=== PATIENT | female | born 1970 | race Caucasian/White ===

== ENCOUNTER 2017-04-07 05:43 | Inpatient (IN) | payer OTHER ==
[~2017-04-07] VITALS: Ht 157.5 cm; Wt 63.9 kg
[2017-04-07] VITALS (14 sets, daily range): BP systolic 93–117; BP diastolic 53–72; PULSE 62–75; RESP 16–21; Ht 157.5 cm; Wt 63.9 kg
[2017-04-07] MEDS ORDERED: EPHEDrine SULFATE 50 MG/5 ML SYG ONE (07:00)
--- NOTE | 2017-04-07 07:15 | HPN ---
Date/Time of Note Date/Time of Note DATE: 04/07/17 TIME: 07:15 Interval H&P Admission Note Pt. seen H&P reviewed: No system changes JESUS WHITTAKER MD Apr 07, 2017 07:15
[2017-04-07] MEDS ORDERED: ROCURONIUM 50 MG INJ ONE (07:33)
[2017-04-07] MEDS ORDERED: PROPOFOL 20 ML ONE (07:33)
[2017-04-07] MEDS ORDERED: CEFAZOLIN 1 GM INJ ONE (07:33)
[2017-04-07] MEDS ORDERED: NEOSTIGMINE 3 MG/3 ML SYRINGE ONE (07:33)
[2017-04-07] MEDS ORDERED: GLYCOPYRROLATE 0.4 MG INJ ONE (07:33)
[2017-04-07] MEDS ORDERED: ONDANSETRON 4 MG INJ ONE (07:34)
[2017-04-07] MEDS ORDERED: DEXAMETHASONE 4 MG/ML 1 ML INJ ONE (07:34)
[2017-04-07] MEDS ORDERED: MIDAZOLAM 1 MG/ML 2 ML INJ ONE (07:34)
[2017-04-07] MEDS ORDERED: FENTAnyl 50 MCG/ML VIAL ONE (07:34)
--- NOTE | 2017-04-07 07:34 | HP ---
Date/Time of Note Date/Time of Note DATE: 04/07/17 TIME: 07:15 Assessment/Plan VTE Prophylaxis VTE Prophylaxis Intervention: ambulation, anti-embolic stocking Lines/Catheters IV Catheter [facility] (from [facility]): Saline Lock Assessment/Plan Assessment/Plan uterine fibroids rapidly growing dyspareunia plan total abdominal hysterectomy and possible bilateral salphingophorectomy HPI/ROS Admit Date/Time Admit Date/Time Apr 07, 2017 at 05:43 Hx of Present Illness 47 y.o A2 was admitted for total abdominal hysterectomy and possible bilateral salphingoophorectomy. she was seen in may last year for annual exam when uterine fibroid discovered for the first time with no significant symptoms except painful intercourse occassionally. her period were regular monthly , last 4days in normal amount. repeated u/s in 5months revealed rapidly growing in size.. chest X-ray neg patient was informed regarding complications from minor to serious from surgical procedure and anesthesia, agree to receive surgical intervention also informed the patient if ovaries grossly normal appearing ,will be saved. ROS occ mild dyspareunia Constitutional: improved, no complaints Eyes: no complaints ENT: no complaints Respiratory: no complaints Cardiovascular: no complaints Gastrointestinal: no complaints Genitourinary: no complaints Musculoskeletal: no complaints Skin: no complaints Neurologic: no complaints Endocrine: no complaints Lymphatic: no complaints Psychological: nl mood/affect, no complaints Immunologic: no complaints PMH/Family/Social Past Medical History Medical History: no pertinent history Past Surgical History Past Surgical Hx: no surgical history, other (father had heaart attack at 49 y.o paternal GF had heart attack at 32y.o, paternal uncle had heaart attack at 68y.o) Family History Significant Family History: heart disease Social History Alcohol Use: none Smoking Status: Current every day smoker Drug Use: none Exam/Review of Systems Vital Signs Vitals Vital Signs Date Time Temp Pulse Resp B/P Pulse Ox O2 Delivery O2 Flow Rate FiO2 04/07/17 06:58 98.1 75 18 110/72 97 Room Air Exam Constitutional: alert, oriented, well developed Psych: nl mood/affect, no complaints Head: atraumatic, normocephalic Eyes: EOMI, PERRL, nl conjunctiva, nl lids, nl sclera ENMT: nl external ears & nose, nl lips & teeth, nl nasal mucosa & septum Neck: non-tender, supple Respiratory: clear to auscultation, normal air movement Cardiovascular: nl pulses, regular rate and rhythm Gastrointestinal: nl liver, spleen, non-tender, soft Genitourinary - Female: CMT, CVA tenderness, nl adnexae, nl external genitalia , other, uterus (enlarged with multiple fibroids approximately 16weeks size) Musculoskeletal: nl extremities to inspection Extremities: normal pulses Neurological: SUPERVISOR GENERAL II-XII intact, nl mental status, nl speech, nl strength Skin: nl turgor, No rash or lesions Lymph: nl lymph nodes JESUS WHITTAKER MD Apr 07, 2017 07:27
[2017-04-07] MEDS ORDERED: morphine SULFATE/PF (10 MG/10 ML) INJ ONE (07:37)
[2017-04-07] MEDS ORDERED: CEFAZOLIN 2 GM/50 ML (PMX) 50 ML IVPB SCH (08:30)
[2017-04-07] MEDS ORDERED: KETOROLAC 30 MG INJ IV PRN (09:00)
[2017-04-07] MEDS ORDERED: IPRATROPIUM (NEB) 0.5 MG/2.5 ML AMP HHN PRN (09:00)
[2017-04-07] MEDS ORDERED: OXYCODONE/ACETAMINOPHEN (5/325) TAB PO PRN ×2 (09:00)
[2017-04-07] MEDS ORDERED: MIDAZOLAM 1 MG/ML 2 ML INJ IV PRN (09:00)
[2017-04-07] MEDS ORDERED: morphine 4 MG/ML VIAL IV PRN (09:00)
[2017-04-07] MEDS ORDERED: DIPHENHYDRAMINE 50 MG INJ IV PRN ×2 (09:00)
[2017-04-07] MEDS ORDERED: ONDANSETRON 4 MG INJ IV PRN (09:00)
[2017-04-07] MEDS ORDERED: hydrALAzine 20 MG INJ IV PRN (09:00)
[2017-04-07] MEDS ORDERED: LABETALOL HCL 20MG INJ IV PRN (09:00)
[2017-04-07] MEDS ORDERED: MEPERIDINE 25 MG INJ IV PRN (09:00)
[2017-04-07] MEDS ORDERED: HYDROmorphONE (0.2 MG/ML) 10ML SYG IV PRN ×3 (09:00)
[2017-04-07] MEDS ORDERED: FENTAnyl 50 MCG/ML VIAL IV PRN ×3 (09:00)
[2017-04-07] MEDS ORDERED: NALBUPHINE HCL (10 MG/1 ML) INJ IV PRN (09:00)
[2017-04-07] MEDS ORDERED: NALOXONE (0.4 MG/ML) INJ IV PRN (09:00)
[2017-04-07] MEDS ORDERED: EPHEDrine SULFATE 50 MG/5 ML SYG IV PRN (09:00)
[2017-04-07] MEDS ORDERED: ZOLPIDEM 5 MG TAB PO PRN (09:00)
[2017-04-07] MEDS ORDERED: morphine 2 MG INJ IV PRN (09:00)
[2017-04-07] MEDS ORDERED: TRIMETHOBENZAMIDE 100 MG/ML VIAL IM PRN ×2 (09:00)
[2017-04-07] MEDS ORDERED: ALBUTEROL 0.083% (NEB) 2.5 MG/3 ML AMP HHN PRN (09:00)
[2017-04-07] MEDS ORDERED: METOCLOPRAMIDE 10 MG INJ ONE (09:54)
--- NOTE | 2017-04-07 09:58 | SIPON ---
Date/Time of Note Date/Time of Note DATE: 04/07/17 TIME: 09:53 Operative Report Preoperative Diagnosis uterine fibroids dyspareunia Postoperative Diagnosis same intraop pathology consult benign rt paratubal cyst Operation/Procedure Performed total abdominal hysterectomy bilateral salphingectomy Surgeon see signature line permit review assistant reiche Anesthesia: general, spinal Estimated blood loss: 100 - 150 ml's Specimen uterus and cervix both follopian tubes Grafts/Implants none Complications none JESUS WHITTAKER MD Apr 07, 2017 09:58
[2017-04-07 10:54] LABS: ADD UMIC NO; UR ASCORBIC ACID NEGATIVE (NEGATIVE); UR BILIRUBIN (Dip) NEGATIVE (NEGATIVE); UR BLOOD (Dip) NEGATIVE (NEGATIVE); UR CLARITY CLEAR (CLEAR); UR COLOR COLORLESS (YELLOW); UR GLUCOSE (Dip) NEGATIVE (NEGATIVE); UR KETONES (Dip) NEGATIVE (NEGATIVE); UR LEUKOCYTE ESTERASE (Dip) NEGATIVE Leu/ul (NEGATIVE); UR NITRITE (Dip) NEGATIVE (NEGATIVE); UR SPECIFIC GRAVITY (Dip) 1.011 (1.003-1.030); UR TOTAL PROTEIN (Dip) NEGATIVE (NEGATIVE); UR UROBILINOGEN (Dip) NEGATIVE (NEGATIVE)
[2017-04-07] MEDS: LACTATED RINGER'S 1,000 ML IV* ONE ×2 (11:31→11:47)
[2017-04-07] MEDS: ONDANSETRON 4 MG INJ IV PRN ×2 (15:00→21:18)
[2017-04-08 02:27] VITALS: BP 104/57; RESP 18
[2017-04-08 08:38] VITALS: BP 103/63; RESP 18
[2017-04-08] MEDS: OXYCODONE/ACETAMINOPHEN (5/325) TAB PO PRN ×2 (09:32→14:09)
--- NOTE | 2017-04-08 10:25 | OPR ---
DATE OF OPERATION: 04/07/2017 PREOPERATIVE DIAGNOSES: 1. Uterine leiomyomata, rapidly growing. 2. Dyspareunia. POSTOPERATIVE DIAGNOSES: 1. Uterine leiomyomata, rapidly growing. 2. Dyspareunia. 3. Intraoperative pathology consultation suggests benign. ANESTHESIA: Spinal and general. ANESTHESIOLOGIST: Dr. Kim SURGEON: Bob Arce MD LEAD OXIDE MILL TENDER: Dr. Storey ESTIMATED BLOOD LOSS: Approximately 150 mL. DESCRIPTION OF PROCEDURE: Under proper induction of spinal anesthesia for postop pain management, p atient was in the frog position. Juarez catheter was introduced into the bladder under sterile condi tion. Under general anesthesia, abdominal wall was prepped and draped in usual aseptic manner. A t ransverse incision was made in the suprapubic region approximately 2 fingers above the pubic rami. Incision was carried down through the subcutaneous tissue to the anterior recti fascia, which was in cised transversely in length of the incision. Fascial flap was created by blunt and sharp dissectio n of tendinous attachment upward and downward, 2 rectus muscles split in the midline, peritoneal cav ity was entered. Pelvic exploration was done, revealed the uterus felt to be approximately 16 weeks of gestational size, firm in consistency, markedly irregular, especially on the left side. Broad l igament, there is approximately 5 cm fibroid noted. Both ovaries felt to be normal, and tubes were normal. At this point, retractor was not going to be introduced because there was not enough space. Uterus was delivered out of the incision and without retractor, procedure proceeded. The Andrew cl amp was placed on the fundus and as I described on the left broad ligament, there was a 5 cm uterine fibroid noted, which interrupted the space, not able to clamp it down on the cornua of the uterus. So, incision was made over the uterine fibroid. The uterine fibroid on the left broad ligament was enucleated and the left uteroovarian ligament and fallopian tube, and the proximal portion of the r ound ligament was clamped, and the round ligament was clamped and cut, ligated with #1 chromic catgu t, which was left long for next procedure. Anterior leaf of the broad ligament was incised inferior medially and created a bladder flap on the left side. The broad ligament was windowed and the prox imal portion of uteroovarian ligament and fallopian tube was clamped and cut, doubly ligated with #1 chromic catgut. Uterine vessel was skeletonized and clamped and cut, transfixed with #1 chromic ca tgut on the left side. Right side, the round ligament was clamped and cut, ligated with a #1 chromi c catgut. Broad ligament was windowed and through this, proximal portion of uteroovarian ligament a nd fallopian tube was clamped and cut, doubly ligated with #1 chromic catgut. In the right side, bl adder flap was created and bladder was pushed down and the uterine vessel was skeletonized, and this was clamped and cut, transfixed with a #1 chromic catgut. Further dissection of bladder down and t he cardinal ligament on each side clamped and cut, ligated with #1 chromic catgut, and uterosacral l igament was clamped and cut, ligated with a #1 chromic, suture was left long for next procedure. Pr ior to the uterosacral ligament, after the uterine vessel was clamped and cut, the fundus was remove d from the operative field for proper visualization, and also conserved to pathology for the status of the fibroid. Pathologist came and gave the report, and benign. OC retractor was introduced and then proceeded to the cardinal ligament on each side, clamped and cut. Uterosacral ligament was cla mped and cut, ligated with #1 chromic catgut, which suture left long. Further dissection of bladder from the cervix and then anterior vagina were entered with a scalpel at the level of the cervicovag inal fold. Then, entire cervix was removed from the operative field as the vaginal vault was held w ith multiple Kochers. Hemostatic angle ligated using #1 chromic catgut on each side, including card inal and the uterosacral ligament. Suture was left long on each angle. The rest of vaginal vault w as closed with #1 chromic catgut in [id number] manner. Then, right fallopian tube was clamped with a Pean, this was doubly ligated with a #1 chromic catgut. The right side, there was a small pa ratubal cyst noted. Left fallopian tube was also clamped and cut and doubly ligated with a #1 chrom ic catgut. Bleeder controlled properly. Irrigation done with water and a piece of Surgicel was kylah shai under the bladder, and 2 pieces of Interceed covered both ovaries. All sponges were removed and OC retractor was removed. Prior to irrigation, the round ligament and the suture left on both corn ua with the uterosacral ligament was tied for the vaginal vault suspension bilaterally. Sponge coun t correct. Instrument count correct. Parietal peritoneum was closed with 0 chromic catgut in davis nuous manner, after all the instruments, sponge count correct. Muscle closed with 0 chromic catgut. Fascia closed with #1 Vicryl in continuous manner in 2 segments, and the subcutaneous tissue irrig ated with water. This layer was approximated with 2-0 plain in continuous manner. Skin closed with Insorb. Steri-Strips applied. The pressure dressing applied. Estimated blood loss approximately 150. The patient withstood procedure well, sent to recovery room in stable condition. Juarez has ab out 1000 mL of urine, clear. Dictated By: BOB HATFIELD/MAME Conf#: [id number] DID#: [id number]
[2017-04-08 10:45] LABS: ADD UMIC NO; UR ASCORBIC ACID NEGATIVE (NEGATIVE); UR BILIRUBIN (Dip) NEGATIVE (NEGATIVE); UR BLOOD (Dip) NEGATIVE (NEGATIVE); UR CLARITY CLEAR (CLEAR); UR COLOR YELLOW (YELLOW); UR GLUCOSE (Dip) NEGATIVE (NEGATIVE); UR KETONES (Dip) NEGATIVE (NEGATIVE); UR LEUKOCYTE ESTERASE (Dip) NEGATIVE Leu/ul (NEGATIVE); UR NITRITE (Dip) NEGATIVE (NEGATIVE); UR TOTAL PROTEIN (Dip) NEGATIVE (NEGATIVE); UR UROBILINOGEN (Dip) NEGATIVE (NEGATIVE)
[2017-04-08] MEDS: IBUPROFEN 600 MG TAB PO SCH ×3 (11:59→23:23)
[2017-04-08 15:20] VITALS: BP 122/63; RESP 18
[2017-04-08 20:00] VITALS: BP 127/74; RESP 19
[2017-04-09] MEDS: IBUPROFEN 600 MG TAB PO SCH ×4 (00:37→23:26)
[2017-04-09 02:15] VITALS: BP 107/59; RESP 19
[2017-04-09 07:00] VITALS: BP 119/79; RESP 18
[2017-04-09] MEDS: OXYCODONE/ACETAMINOPHEN (5/325) TAB PO PRN ×2 (08:11→15:43)
--- NOTE | 2017-04-09 13:08 | PN ---
Date/Time of Note Date/Time of Note DATE: 04/09/17 TIME: 13:04 Assessment/Plan Lines/Catheters IV Catheter Type (from Nrs): Saline Lock Juarez in Place (from Nrs): Yes Subjective 24 Hr Interval Summary S little flatus c/osurgicalpain but better than yesterday nausea but no vomiting O vss afebrile abdomen soft wound dry no vagial bleeding A stable s/p ABELARDO BS P as ordered Exam/Review of Systems Vital Signs Vitals Vital Signs Date Time Temp Pulse Resp B/P Pulse Ox O2 Delivery O2 Flow Rate FiO2 04/09/17 07:00 98.7 84 18 119/79 97 04/07/17 10:58 Room Air Intake and Output 04/08/17 04/08/17 04/09/17 15:00 23:00 07:00 Intake Total 400 ml 880 ml Output Total 1000 ml 920 ml Balance -600 ml -40 ml JESUS WHITTAKER MD Apr 09, 2017 13:08
[2017-04-09 14:00] VITALS: BP 122/76; RESP 18
[2017-04-09 14:04] LABS: BASOPHILS % 0.2 % (0.0-2.0); EOSINOPHILS % 0.1 % (0.0-7.0); HEMATOCRIT 34.1 % (37.0-47.0); HEMOGLOBIN 11.2 g/dl (12.0-16.0); LYMPHOCYTES # 1.3 10^3/ul (0.8-2.9); LYMPHOCYTES % 10.8 % (15.0-51.0); MEAN CORPUSCULAR HEMOGLOBIN 29.5 pg (29.0-33.0); MEAN CORPUSCULAR HGB CONC 32.8 g/dl (32.0-37.0); MEAN CORPUSCULAR VOLUME 89.7 fl (82.0-101.0); MEAN PLATELET VOLUME 10.1 fl (7.4-10.4); MONOCYTE # 0.7 10^3/ul (0.3-0.9); MONOCYTES % 5.3 % (0.0-11.0); NEUTROPHIL # 10.2 10^3/ul (1.6-7.5); NEUTROPHILS % 83.1 % (39.0-77.0); PLATELET COUNT 217 10^3/UL (140-415); RED CELL DISTRIBUTION WIDTH 14.1 % (11.5-14.5); WHITE BLOOD COUNT 12.3 10^3/ul (4.8-10.8)
[2017-04-09 20:00] VITALS: BP 112/75; RESP 18
[2017-04-09] MEDS: DOCUSATE SODIUM 100 MG CAP PO SCH (20:11)
[2017-04-10 02:00] VITALS: BP 112/74; RESP 18
[2017-04-10] MEDS: IBUPROFEN 600 MG TAB PO SCH ×2 (05:03→13:16)
[2017-04-10 08:00] VITALS: BP 111/77; RESP 18
[2017-04-10] MEDS: DOCUSATE SODIUM 100 MG CAP PO SCH (08:48)
[2017-04-10] MEDS: OXYCODONE/ACETAMINOPHEN (5/325) TAB PO PRN (08:52)
[2017-04-10 12:49] VITALS: BP 105/67; RESP 18
--- NOTE | 2017-04-10 17:56 | PD.PPDC ---
ENGLISH TUTOR Discharge Instruction Diagnosis Final Diagnosis: uterine fibroids Condition Patient Condition: Stable Diet Diet: Resume Regular Diet Activity/Restrictions Activity: May Shower Restrictions: No Exercising No Lifting No Driving Minimize Stair-climbing No Sexual Activity Nothing in the Vagina No [place] No Tampons, douche Wound/Drain Care Instructions Wound/Drain Care Instructions: Wash with soap and water Keep clean and dry Follow-up Follow-up with Physician: 2, Week/Weeks Return to clinic for THERAPEUTIC RECREATION LEADER Instructions: Fever greater than 101 Chills Worsening abdominal pain Excessive Vaginal Bleeding More than 2 pads per hour Unable to tolerate diet Surgical Instructions: Incisional Drainage Incisional Redness JESUS WHITTAKER MD Apr 10, 2017 17:56
--- NOTE | 2017-04-10 18:03 | DS ---
Date/Time of Note Date/Time of Note DATE: 04/10/17 TIME: 17:57 Discharge Summary Admission/Discharge Info Admit Date/Time Apr 07, 2017 at 05:43 Discharge Date/Time apr 10 2017/1800 Discharge Diagnosis uterine fibroids dyspareunia Rt paratubal serous cystadenoma Patient Condition: Stable Consults none Procedures total abdominal hysterectomy and bilaateral salphingectomy Hx of Present Illness 47 y.o A2 was admitted for total abdominal hysterectomy and possible bilateral salphingoophorectomy. she was seen in may last year for annual exam when uterine fibroid discovered for the first time with no significant symptoms except painful intercourse occassionally. her period were regular monthly , last 4days in normal amount. repeated u/s in 5months revealed rapidly growing in size.. chest X-ray neg patient was informed regarding complications from minor to serious from surgical procedure and anesthesia, agree to receive surgical intervention also informed the patient if ovaries grossly normal appearing ,will be saved. Hospital Course postop had unevenful course pathologic finding is benign Home Meds No Active Prescriptions or Reported Meds Follow-up Plan 2weeks Primary Care Provider Not On Staff Doctor Time spent on discharge: < 30 minutes JESUS WHITTAKER MD Apr 10, 2017 18:03
== END 2017-04-10 18:59 | disposition home or self-care (01) | DRG 743 ==
LOC: REC 05:43 → EDSTATUS 07:30 → MS1 11:15
PROVIDERS: ADMIT Obstetrics & Gynecology; ATTEND Obstetrics & Gynecology
PROC: 0UTC0ZZ Resection of Cervix, Open Approach (ICD-10-PCS; 2017-04-07)
PROC: 0UT70ZZ Resection of Bilateral Fallopian Tubes, Open Approach (ICD-10-PCS; 2017-04-07)
PROC: 0UT90ZZ Resection of Uterus, Open Approach (ICD-10-PCS; principal; 2017-04-07 07:30)
DX: D25.9 Leiomyoma of uterus, unspecified (principal); D28.2 Benign neoplasm of uterine tubes and ligaments; N94.10 Unspecified dyspareunia; F17.210 Nicotine dependence, cigarettes, uncomplicated
CPT/HCPCS: 81003; 85025; 86850; 86900; 86901; 86920; 87086; 88305; 88331; J0690; J1100; J1200; J1885; J2250; J2270; J2274; J2405; J2710; J2765; J3010